=== PATIENT | male | born 1950 | race Caucasian/White ===

== ENCOUNTER 2020-03-16 20:32 | Emergency (ER) | payer MEDICARE, MEDICAID ==
[~2020-03-16] VITALS: Ht 162.6 cm; Wt 63.0 kg
[2020-03-16 21:54] LABS: HEMATOCRIT. 56.2 % (42.0-52.0); MEAN CORPUSCULAR HEMOGLOBIN 27.8 pg (28.0-32.0); MEAN CORPUSCULAR VOLUME 82.2 fL (80.0-94.0); MEAN PLATELET VOLUME 7.7 fl (7.4-10.4); PLATELET 322 x1000/uL (130-400); RED BLOOD CELL COUNT 6.83 mill/uL (4.7-6.1); RED CELL DISTRIBUTION WIDTH 14.6 % (11.6-14.6)
[2020-03-16 22:02] LABS: CHLORIDE 103 mEq/L (98-107)
[2020-03-16 22:13] LABS: PLATELET ESTIMATE NORMAL
[2020-03-17] MEDS ORDERED: ONDANSETRON HCL 4MG/2ML INJ IV ONE (03:15)
[2020-03-17] MEDS ORDERED: CEFTRIAXONE 1 G PREMIX 50 ML IV SCH (09:15)
[2020-03-17] MEDS ORDERED: ACETAMINOPHEN 325MG TABLET PO PRN (09:15)
[2020-03-17] MEDS ORDERED: ONDANSETRON HCL 4MG/2ML INJ IV PRN (09:15)
[2020-03-17] MEDS ORDERED: AZITHROMYCIN 500 MG TABLET PO NR (09:30)
[2020-03-17] MEDS ORDERED: ALBUTEROL 6.7GM HFA INHALER ORI SCH (09:30)
[2020-03-17] MEDS ORDERED: ENOXAPARIN 40MG/0.4ML SYR SUBCUT SCH (10:00)
[2020-03-17 11:02] VITALS: BP 92/60
[2020-03-18] MEDS ORDERED: AZITHROMYCIN 250 MG TABLET PO SCH (09:00)
== END 2020-03-17 15:26 | disposition left against medical advice (07) ==
LOC: ER 20:32 → CANBEDREQ 03-17 15:32
DX: U07.1 COVID-19 (principal); R06.02 Shortness of breath; I49.9 Cardiac arrhythmia, unspecified; Z88.0 Allergy status to penicillin; Z91.018 Allergy to other foods
CPT/HCPCS: 36415; 71045; 80053; 83880; 84484; 85025; 87635; 87804; 93005; 96372; 96374; 99285; J2405